=== PATIENT | female | born 1975 | race Two or more races ===

== ENCOUNTER 2019-05-23 21:12 | Inpatient (IN) | payer MEDICAID ==
[~2019-05-23] VITALS: Ht 154.9 cm; Wt 64.1 kg
[2019-05-23] VITALS (11 sets, daily range): BP systolic 92–136; BP diastolic 49–87; BMI 29.6
--- NOTE | 2019-05-23 21:50 | NUR ---
Patient arrived in unit. Patient to the ICU monitors. Patient speaks very little Azeri. medical billing supervisor nurse notified for translation phone. Patient normal sinus rhythm on monitor. Right subclavian central line noted. Dressing clean dry intact. Right wrist PIV noted clean dry and intact dressing. Midline abdominal dressing clean dry intact. Dressing removed incision well approximated. Midline abdominal drain LUBA drain x1 noted. Bloody drainage noted. Dr. Tran at the bedside at the patient's bedside. Dr. Tran did dressing change. See orders. Patient patient on levophed. See IV flowsheet. Will titrate Levophed per blood pressure and orders. Call light in reach. We will continue plan of care
[2019-05-23 22:17] LABS: APTT 30.7 SECONDS (22.8-39.4); INR 1.29 (0.85-1.17)
[2019-05-23 22:18] LABS: HEMATOCRIT 32.7 % (36.0-48.0); HEMOGLOBIN 10.7 g/dL (12-16); MCH 28.5 pg (26.0-34.0); MCHC 32.7 g/dL (31.0-37.0); MEAN PLATELET VOLUME 11.4 fL (7.4-10.4); PLATELET COUNT 98 10x3/uL (130-400); RBC 3.76 10x6/uL (4.00-5.40); RDW 15.9 % (11.5-14.5); WBC 29.8 10x3/uL (4.8-10.8)
[2019-05-23 22:18] LABS: D-DIMER-QUANTITATIVE 1.55 ug/mLFEU (0.20-0.54)
--- NOTE | 2019-05-23 22:30 | NUR ---
DR. CONNORS AT THE PTS BEDSIDE. WILL CONT POC.
[2019-05-23 22:36] LABS: ALBUMIN 1.8 g/dL (3.4-5.0); ALKALINE PHOSPHATASE 52 U/L (30-120); ALT (SGPT) 57 U/L (10-68); BILIRUBIN - TOTAL 1.19 mg/dL (0.2-1.3); CALC OSMOLALITY 282 mosm/kg (275-300); CARBON DIOXIDE 19.3 mmol/L (21.0-32.0); CHLORIDE - SERUM 107 mmol/L (98-107); CKMB 4.9 U/L (0.0-3.6); CREATINE KINASE 200 UL (21-215); GLUCOSE 207 mg/dL (74-106); POTASSIUM - SERUM 3.7 mmol/L (3.5-5.1); PROTEIN - SERUM 3.9 g/dL (6.4-8.2); SODIUM 139 mmol/L (136-145); UREA NITROGEN 10 mg/dL (7-18); eGFR NON AFRICAN AMERICAN 63 mL/min (90-120)
[2019-05-23 22:38] LABS: CALCIUM 5.9 mg/dL (8.5-10.1); TROPONIN-I 0.872 ng/mL (0.000-0.060)
[2019-05-23 22:53] LABS: EOSINOPHILS 3 % (0-7); LYMPHOCYTES 4 % (15-50); NEUTROPHILS 78 % (40-80); PLATELET ESTIMATE DECREASED
--- NOTE | 2019-05-23 23:16 | NUR ---
BLOOD CONSENT SIGNED BY THE PATIENT. (USED TRANSLATION PHONE. UNDERSTANDS COMPLETELY.)
--- NOTE | 2019-05-23 23:17 | NUR ---
PT LEFT AND CAME BACK FROM CTA. VSS. CONT TO TITRATE LEVOPHED. A TOTAL OF 120ML OF BLOODY DRAIANG EMPTIED FROM LUBA DRAIN. WILL CONT POC.
[2019-05-24] VITALS (90 sets, daily range): BP systolic 75–144; BP diastolic 45–85; BMI 29.5
[2019-05-24 03:59] LABS: BASOPHILS 0.1 % (0-2); EOSINOPHILS 0 % (0-7); HEMATOCRIT 30.5 % (36.0-48.0); HEMOGLOBIN 10.4 g/dL (12-16); IMMATURE GRANULOCYTES 0.4 % (0-5); LYMPHOCYTES 7.4 % (15-50); MCH 28.8 pg (26.0-34.0); MCHC 34.1 g/dL (31.0-37.0); MCV 84.5 fL (80.0-100.0); MONOCYTES 10.4 % (2-11); NEUTROPHILS 81.7 % (40-80); PLATELET COUNT 103 10x3/uL (130-400); RBC 3.61 10x6/uL (4.00-5.40); RDW 16.3 % (11.5-14.5)
[2019-05-24 04:19] LABS: ALBUMIN 1.9 g/dL (3.4-5.0); ALKALINE PHOSPHATASE 56 U/L (30-120); ALT (SGPT) 51 U/L (10-68); BILIRUBIN - TOTAL 0.91 mg/dL (0.2-1.3); CALC OSMOLALITY 267 mosm/kg (275-300); CARBON DIOXIDE 21.7 mmol/L (21.0-32.0); CHLORIDE - SERUM 106 mmol/L (98-107); CREATINE KINASE 211 UL (21-215); CREATININE - SERUM 0.7 mg/dL (0.6-1.3); GLUCOSE 135 mg/dL (74-106); MAGNESIUM - SERUM 1.2 mg/dL (1.8-2.4); PHOSPHOROUS 2.6 mg/dL (2.5-4.9); POTASSIUM - SERUM 3.6 mmol/L (3.5-5.1); PROTEIN - SERUM 4.1 g/dL (6.4-8.2); SODIUM 134 mmol/L (136-145); TROPONIN-I 0.487 ng/mL (0.000-0.060); UREA NITROGEN 7 mg/dL (7-18); eGFR NON AFRICAN AMERICAN > 90 mL/min (90-120)
[2019-05-24 04:20] LABS: CALCIUM 6.4 mg/dL (8.5-10.1)
--- NOTE | 2019-05-24 04:32 | NUR ---
LEVOPHED AT 8MCG/MIN. PT HAD A DROP IN HER BLOOD PRESSURE. CVP HOOKED TO ICU MONTITOR. 5-6 CVP. TITRATED LEVOPHED TO 25 MCG/MIN. DR DIANE NOTIFIED FOR CHANGE OF CONDITION. DR DIANE MADE AWARE OF CVL IN R ARTIUM AND RECOMENDS TO BE RETRACTED. DR DIANE MADE NOTIFIED OF AM LABS. GIVE 500ML BOLUS, GIVE 2 G IV MAG, AFTER NS BOLUS GIVEN, RECHECK CBC.
[2019-05-24 05:19] LABS: BASOPHILS 0.1 % (0-2); EOSINOPHILS 0 % (0-7); HEMOGLOBIN 9.8 g/dL (12-16); IMMATURE GRANULOCYTES 0.6 % (0-5); LYMPHOCYTES 10.7 % (15-50); MCH 28.7 pg (26.0-34.0); MCHC 33.8 g/dL (31.0-37.0); MCV 84.8 fL (80.0-100.0); MEAN PLATELET VOLUME 10.5 fL (7.4-10.4); MONOCYTES 12.5 % (2-11); NEUTROPHILS 76.1 % (40-80); PLATELET COUNT 104 10x3/uL (130-400); RBC 3.42 10x6/uL (4.00-5.40); RDW 16.5 % (11.5-14.5); WBC 18.7 10x3/uL (4.8-10.8)
--- NOTE | 2019-05-24 07:00 | NUR ---
REC'D REPORT AND RESUMED CARE, AAO VSS, O2 VIA NC AT 2L, SAT 98%, OTHER VSS, LEVAPHED IN USE AT 25MCG, RIGHT SC CVL IN PLACE DRESSING INTACT, MIDLINE ABDOMINAL INCISION WITH GAUZE DRESSING CDI, LLA WITH LUBA DRAIN, BLOODY DRAINAGE NOTED TO BULB, FORBES TO GRAVITY WITH CLEAR YELLOW DRAINAGE, SCD'S AND TEDS B/L, DENIES PAIN, ASSESSMENT COMPLETED PER FLOWSHEET, CALL LIGHT IN REACH, IRAQI SOLOMON LANGUAGE BUT UNDERSTANDS KITTITIAN, CUFF PRESSER PHONE AT BEDSIDE, NO NEEDS AT THIS TIME,
--- NOTE | 2019-05-24 09:00 | NUR ---
MORNING MEDS GIVEN PER APR FLOWSHEET
[2019-05-24 10:36] LABS: HEMATOCRIT 27.5 % (36.0-48.0); HEMOGLOBIN 9.2 g/dL (12-16)
[2019-05-24 10:39] LABS: APTT 28.7 SECONDS (22.8-39.4); INR 1.3 (0.85-1.17); PROTIME 16.1 SECONDS (11.6-15.0)
[2019-05-24 10:40] LABS: D-DIMER-QUANTITATIVE 0.84 ug/mLFEU (0.20-0.54)
--- NOTE | 2019-05-24 10:55 | NUR ---
DR DIANE AT BEDSIDE, UPDATED PATIENT STATUS TO FAMILY VIA PHONE, CVL LINE PULLED BACK 4 CM, PER RADIOLOGY REPORT, PROCEDURE TOLERATED WITHOUT DIFFICULTY, NO OTHER ACUTE CHANGE FROM PREVIOUS ASSESSMENT Moose GONSALEZ, CARDIOLOGY REGISTERED NURSING PROFESSOR AT BEDSIDE FOR EVAL, AWAITING ECHO REPORT TO BE COMPLETED, NO NEW ORDERS AT THIS TIME
--- NOTE | 2019-05-24 13:00 | NUR ---
CALLED TO ROOM, PAIN 5/10 IN ABDOMEN, DILAUDID 1MG IVP GIVEN PER MAR ORDER
--- NOTE | 2019-05-24 15:00 | NUR ---
CALLED TO ROOM, C/O OF THROAT BEING SORE, PC TO FELIZ RAMIREZ TO ORDER CHLORASEPTIC SPRAY, NO OTHER ACUTE CHANGE FROM PREVIOUS ASSESSMENT
[2019-05-24 15:40] LABS: HEMATOCRIT 25.6 % (36.0-48.0); HEMOGLOBIN 8.6 g/dL (12-16)
--- NOTE | 2019-05-24 16:25 | NUR ---
BLOOD CULTURES DRAWN, CVL/PERIPHERAL, VSS, ANCEF 1 GM INITIATED, PC TO DR DIANE RE: BLOOD PRODUCTS, HE STATED TO GIVE 2, AND WE CAN RECHECK, H/H AND TO ORDER COAGS FOR AM, STREP A FOR SWOLLEN THROAT,
--- NOTE | 2019-05-24 17:27 | NUR ---
CALLED TO ROOM, C/O HAVING TROUBLE BREATHING, PC TO SAMIR AHMADI, CT OF NECK, SOFT TISSUE ORDERED, ICE PACK APPLIED
[2019-05-24 23:56] LABS: HEMATOCRIT 34.4 % (36.0-48.0)
[2019-05-25] VITALS (84 sets, daily range): BP systolic 86–154; BP diastolic 41–637; Ht 154.9 cm; Wt 64.1 kg
[2019-05-25 06:13] LABS: ALBUMIN 2.2 g/dL (3.4-5.0); ALKALINE PHOSPHATASE 77 U/L (30-120); BILIRUBIN - TOTAL 0.82 mg/dL (0.2-1.3); CALCIUM 7.4 mg/dL (8.5-10.1); CARBON DIOXIDE 24.1 mmol/L (21.0-32.0); CHLORIDE - SERUM 106 mmol/L (98-107); SODIUM 141 mmol/L (136-145)
[2019-05-25 06:25] LABS: HEMATOCRIT 33.9 % (36.0-48.0); MCH 29.4 pg (26.0-34.0); MCHC 35.4 g/dL (31.0-37.0); MCV 83.1 fL (80.0-100.0); PLATELET COUNT 102 10x3/uL (130-400); RBC 4.08 10x6/uL (4.00-5.40); RDW 15.7 % (11.5-14.5); WBC 22.3 10x3/uL (4.8-10.8)
[2019-05-25 06:36] LABS: ALT (SGPT) 35 U/L (10-68); CALC OSMOLALITY 282 mosm/kg (275-300); CREATININE - SERUM 0.5 mg/dL (0.6-1.3); GLUCOSE 189 mg/dL (74-106); MAGNESIUM - SERUM 1.7 mg/dL (1.8-2.4); PROTEIN - SERUM 5.3 g/dL (6.4-8.2); UREA NITROGEN 5 mg/dL (7-18); eGFR NON AFRICAN AMERICAN > 90 mL/min (90-120)
[2019-05-25 06:40] LABS: PHOSPHOROUS 1.5 mg/dL (2.5-4.9); POTASSIUM - SERUM 2.9 mmol/L (3.5-5.1)
--- NOTE | 2019-05-25 07:00 | NUR ---
REC'D RPORT AND RESUMED CARE, AAO, VSS, DENIES PAIN, NO SIGNS OF DISTRESS, O2 VIA 2L NC, SAT 100%, RIGHT IJ WITH LEVAPHED INFUSING AT 5MCG, NS AT 10 CC/HR, ASSESSMENT COMPLETED PER FLOWSHEET, CALL LIGHT IN REACH, NO NEEDS AT THIS TIME
--- NOTE | 2019-05-25 09:00 | NUR ---
MORNING MEDS INITITATED PER MAR FLOWSHEET
--- NOTE | 2019-05-25 09:30 | NUR ---
AMBULATED 60 FEET WITH STAND BY ASSIST FROM PHYSICAL THERAPY
[2019-05-25 09:46] LABS: APTT 25.4 SECONDS (22.8-39.4); INR 1.1 (0.85-1.17); PROTIME 14.1 SECONDS (11.6-15.0)
[2019-05-25 09:47] LABS: D-DIMER-QUANTITATIVE 0.97 ug/mLFEU (0.20-0.54)
[2019-05-25 09:54] LABS: HEMATOCRIT 33.3 % (36.0-48.0); HEMOGLOBIN 11.3 g/dL (12-16)
--- NOTE | 2019-05-25 10:00 | NUR ---
DR DIANE HERE FOR EVAL, NEW ORDERS GIVEN, DIET UPGRADED TO CLEAR LIQUIDS, HOT TEA, APPLE JUICE AND JELLO TO BEDSIDE
--- NOTE | 2019-05-25 11:00 | NUR ---
UP IN CHAIR WITH NO SIGNS OF DISTRESS,VSS, NO ACUTE CHANGE FROM PREVIOUS ASSESSMENT
[2019-05-25 11:59] LABS: COMPLEMENT C4 15.7 mg/dL (17.4-52.2)
[2019-05-25 13:57] LABS: ERYTHROCYTE SEDIMENTATION RATE 7 mm/hr (0-20)
--- NOTE | 2019-05-25 14:30 | NUR ---
AMGULATED 100 FEET WITH VI ASSIST FROM PHYSICAL THERAPY, TOLERATED WITHOUT DIFFICULTY
--- NOTE | 2019-05-25 15:00 | NUR ---
CONTINUES TO SIT UP IN CHAIR, NO SIGNS OF DISTRESS, VSS, CALL LIGHT IN REACH NO NEEDS AT THIS TIME
[2019-05-25 15:03] LABS: LYMPHOCYTES 2 % (15-50); MONOCYTES 5 % (2-11); NEUTROPHILS 90 % (40-80); PLATELET ESTIMATE DECREASED
[2019-05-25 15:32] LABS: HEMATOCRIT 30.2 % (36.0-48.0); HEMOGLOBIN 10.2 g/dL (12-16)
--- NOTE | 2019-05-25 16:00 | NUR ---
DR PAYAN AT BEDSIDE, STATUS UPDATE WITH PATIENT, BTB WITH ASSIST, LUBA DRAIN AND FORBES DC'D WITHOUT DIFFICULTY, I AND O'S COMPLETED
--- NOTE | 2019-05-25 17:43 | NUR ---
OOB TO BEDSIDE COMMODE, 250 CC URINE TO KELLY, BTB WITH STAND BY ASSIST
--- NOTE | 2019-05-25 19:15 | NUR ---
ASSESSMENT COMPLETED PER FLOWSHEETS. PT A/O X4, DENIES ANY DISCOMFORT AT THIS TIME. ST ON CM. CONT LEVOPHED TO KEEP SBP >90, PER ORDER. CALL LIGHT IN REACH. CONT TO MONITOR.
[2019-05-25 22:57] LABS: HEMATOCRIT 28.5 % (36.0-48.0); HEMOGLOBIN 9.6 g/dL (12-16)
--- NOTE | 2019-05-25 23:00 | NUR ---
REASSESSMENT COMPLETED PER FLOWSHEETS. NO ACUTE CHANGES NOTED IN PT'S STATUS. TITRATE LEVOPHED TO KEEP SBP>90. SR ON CM. CPOC.
[2019-05-26] VITALS (72 sets, daily range): BP systolic 71–143; BP diastolic 45–83
--- NOTE | 2019-05-26 03:00 | NUR ---
REASSESSMENT COMPLETED. SEE FLOWSHEETS FOR ALL FINDINGS. PT RESTING QUIETLY WITHOUT ANY SIGNS OF DISTRESS. VSS. CPOC.
[2019-05-26 05:53] LABS: BASOPHILS 0 % (0-2); EOSINOPHILS 0 % (0-7); HEMATOCRIT 27.4 % (36.0-48.0); HEMOGLOBIN 9.3 g/dL (12-16); IMMATURE GRANULOCYTES 0.5 % (0-5); LYMPHOCYTES 4.1 % (15-50); MCHC 33.9 g/dL (31.0-37.0); MEAN PLATELET VOLUME 9.5 fL (7.4-10.4); MONOCYTES 5.6 % (2-11); NEUTROPHILS 89.8 % (40-80); WBC 19.4 10x3/uL (4.8-10.8)
[2019-05-26 06:03] LABS: MCV 85.4 fL (80.0-100.0); PLATELET COUNT 161 10x3/uL (130-400); RBC 3.21 10x6/uL (4.00-5.40)
[2019-05-26 06:10] LABS: ALBUMIN 2.1 g/dL (3.4-5.0); ALKALINE PHOSPHATASE 60 U/L (30-120); ALT (SGPT) 23 U/L (10-68); BILIRUBIN - TOTAL 0.68 mg/dL (0.2-1.3); CALC OSMOLALITY 288 mosm/kg (275-300); CALCIUM 7.4 mg/dL (8.5-10.1); CARBON DIOXIDE 30.2 mmol/L (21.0-32.0); CHLORIDE - SERUM 106 mmol/L (98-107); CREATININE - SERUM 0.5 mg/dL (0.6-1.3); GLUCOSE 152 mg/dL (74-106); MAGNESIUM - SERUM 1.9 mg/dL (1.8-2.4); PHOSPHOROUS 1.7 mg/dL (2.5-4.9); SODIUM 144 mmol/L (136-145); UREA NITROGEN 9 mg/dL (7-18); eGFR NON AFRICAN AMERICAN > 90 mL/min (90-120)
[2019-05-26 06:11] LABS: POTASSIUM - SERUM 2.6 mmol/L (3.5-5.1)
--- NOTE | 2019-05-26 08:36 | NUR ---
DR MANN HERE FOR EVAL, NO NEW ORDERS AT THIS TIME
[2019-05-26 11:08] LABS: ANA REFLEX - DIRECT Negative (Negative)
[2019-05-26 11:08] LABS: SPE - A/G RATIO 1.5 (0.7-1.7); SPE - ALBUMIN 2.2 g/dL (2.9-4.4); SPE - ALPHA-1 GLOBULIN 0.2 g/dL (0.0-0.4); SPE - ALPHA-2 GLOBULIN 0.4 g/dL (0.4-1.0); SPE - BETA GLOBULIN 0.5 g/dL (0.7-1.3); SPE - GAMMA GLOBULIN 0.5 g/dL (0.4-1.8); SPE - M-SPIKE Not Observed g/dL (Not Observed); SPE - TOTAL PROTEIN 3.7 g/dL (6.0-8.5)
--- NOTE | 2019-05-26 12:10 | NUR ---
PER DATA MODELING ARCHITECT WILL NEED TO MAKE PATIENT NPO AFTER MIDNIGHT FOR ABDOMINAL US ON WEDNESDAY MORNING
--- NOTE | 2019-05-26 12:29 | NUR ---
Nutrition Follow-up: Diet advanced to regular this AM. Noted pt to be NPO p MN for abd US tomorrow. Diet: Regular PO intake: 50-100% yesterday (clears) Wt: 156.5# (05/23) No BMs recorded Labs noted: K+ 2.6, Glu 152, Ca 7.4, PO4 1.7, Alb 2.1 Meds noted: KDur, MagOx, Solumedrol, Protonix, Levophed -Encourage PO intake and honor food preferences. -Monitor wt. -RD following.
[2019-05-26 12:35] LABS: HEMATOCRIT 33.4 % (36.0-48.0); HEMOGLOBIN 11.2 g/dL (12-16)
[2019-05-26 12:58] LABS: T4 THYROXIN - FREE 1.06 ng/dL (0.76-1.46); THYROID STIMULATING HORMONE 0.37 uIU/mL (0.36-3.74)
[2019-05-26 15:57] LABS: HEMATOCRIT 27.7 % (36.0-48.0); HEMOGLOBIN 9.2 g/dL (12-16)
--- NOTE | 2019-05-26 21:20 | NUR ---
ATTEMPTED TO SET PT UP FOR A BATH, REFUSED AT THIS TIME "SHE IS TOO TIRED." REQUESTED SHE LET ME KNOW IF SHE CHANGED HER MIND, VERBALIZED UNDERSTANDING.
[2019-05-27] VITALS (23 sets, daily range): BP systolic 95–131; BP diastolic 41–96
[2019-05-27 00:19] LABS: HEMATOCRIT 26.5 % (36.0-48.0); HEMOGLOBIN 8.8 g/dL (12-16)
--- NOTE | 2019-05-27 02:26 | NUR ---
PT C/O HEADACHE 8/10 ON PAIN SCALE, PRN NORCO 5 ADMINISTERED PER MD ORDER/PT REQUEST.
[2019-05-27 04:11] LABS: APTT 21.3 SECONDS (22.8-39.4)
[2019-05-27 04:12] LABS: INR 1.09 (0.85-1.17); PROTIME 14.1 SECONDS (11.6-15.0)
[2019-05-27 04:14] LABS: ALBUMIN 2.1 g/dL (3.4-5.0); ALKALINE PHOSPHATASE 56 U/L (30-120); ALT (SGPT) 21 U/L (10-68); BILIRUBIN - TOTAL 0.51 mg/dL (0.2-1.3); CALC OSMOLALITY 284 mosm/kg (275-300); CARBON DIOXIDE 28.3 mmol/L (21.0-32.0); CHLORIDE - SERUM 109 mmol/L (98-107); CREATININE - SERUM 0.4 mg/dL (0.6-1.3); GLUCOSE 159 mg/dL (74-106); PHOSPHOROUS 1.8 mg/dL (2.5-4.9); PROTEIN - SERUM 4.8 g/dL (6.4-8.2); SODIUM 142 mmol/L (136-145); UREA NITROGEN 10 mg/dL (7-18); eGFR NON AFRICAN AMERICAN > 90 mL/min (90-120)
[2019-05-27 04:20] LABS: CALCIUM 6.8 mg/dL (8.5-10.1); POTASSIUM - SERUM 3.8 mmol/L (3.5-5.1)
--- NOTE | 2019-05-27 04:32 | NUR ---
CRITICAL CALCIUM OF 6.8 NOTED ON AM MD GILBERT NOT CALLED DUE TO CORRECTED CALCIUM LEVEL 8.32 MG/DL
--- NOTE | 2019-05-27 05:51 | NUR ---
PT RESTING IN BED WITH EYES CLOSED, VSS, CONT TO MONITOR.
[2019-05-27 08:50] LABS: HEMATOCRIT 26.3 % (36.0-48.0); HEMOGLOBIN 8.5 g/dL (12-16); MCH 28.9 pg (26.0-34.0); MCHC 32.3 g/dL (31.0-37.0); MCV 89.5 fL (80.0-100.0); MEAN PLATELET VOLUME 10.4 fL (7.4-10.4); PLATELET COUNT 179 10x3/uL (130-400); RBC 2.94 10x6/uL (4.00-5.40); RDW 16.7 % (11.5-14.5); WBC 14.1 10x3/uL (4.8-10.8)
--- NOTE | 2019-05-27 08:50 | NUR ---
UP IN CHAIR BESIDE BED AT THIS TIME. VSS. NO ACUTE DISTRESS NOTED. CALL LIGHT AND PERSONAL ITEMS IN REACH. WILL CONTINUE PLAN OF CARE.
[2019-05-27 09:19] LABS: HYPOCHROMASIA 3+; LYMPHOCYTES 8 % (15-50); MONOCYTES 3 % (2-11); NEUTROPHILS 89 % (40-80); PLATELET ESTIMATE NORMAL; ROULEAUX 2+
--- NOTE | 2019-05-27 10:04 | NUR ---
UP IN CHAIR BESIDE BED AT THIS TIME EATING BREAKFAST AT THIS TIME. VSS. NO ACUTE DISTRESS NOTED. WILL CONTINUE PLAN OF CARE.
--- NOTE | 2019-05-27 11:08 | NUR ---
PER DR DIANE, OBTAIN Q12H H&H ALONG WITH A STAT NOW.
--- NOTE | 2019-05-27 11:12 | NUR ---
PT C/O A HEADACHE, SLIGHT INDIGESTION, AND CONSTIPATION. DR DIANE HERE TO SEE PT, NOTIFIED OF THIS.
[2019-05-27 11:22] LABS: HEMATOCRIT 28.8 % (36.0-48.0); HEMOGLOBIN 9.3 g/dL (12-16)
--- NOTE | 2019-05-27 12:30 | NUR ---
PT UP IN CHAIR AT THIS TIME. DENIES ANY NEEDS. VSS. NO ACUTE DISTRESS NOTED. WILL CONTINUE PLAN OF CARE.
--- NOTE | 2019-05-27 14:02 | NUR ---
NO ACUTE DISTRESS NOTED. NO CHANGE. VSS. PT INDEPENDENT IN CHAIR. CALL LIGHT AND PERSONAL ITEMS IN REACH. WILL CONTINUE PLAN OF CARE.
--- NOTE | 2019-05-27 16:17 | NUR ---
PT RESTING IN BED AT THIS TIME. VSS. NO ACUTE DISTRESS NOTED. PT DENIES ANY CURRENT NEEDS. CALL LIGHT AND PERSONAL ITEMS IN REACH. WILL CONTINUE PLAN OF CARE.
--- NOTE | 2019-05-27 16:19 | NUR ---
G BATH OFFERED TO PT, SHE REFUSED STATING SHE DID NOT WANT A BATH RIGHT NOW.
--- NOTE | 2019-05-27 18:01 | NUR ---
CONTINENT BOWEL MOVEMENT NOTED AT THIS TIME. SOFT BROWN, LARGE. PT PROVIDED OWN ANIYA CARE. ALSO CONTINENT VOID NOTED. ALL VIA BEDSIDE TOILET. PT NOW IN BED AWAKE. DENIES ANY NEEDS. VSS. WILL CONTINUE PLAN OF CARE.
--- NOTE | 2019-05-27 21:40 | NUR ---
PT SET UP WITH BATH SUPPLIES UP IN CHAIR, ABLE TO BATHE SELF. COMPLETE LINEN CHANGE DONE, BED LOW, CALL LIGHT IN REACH, DENIES ANY OTHER NEEDS AT THIS TIME.
[2019-05-28] VITALS (17 sets, daily range): BP systolic 92–127; BP diastolic 56–77
--- NOTE | 2019-05-28 00:53 | NUR ---
PT C/O HEADACHE 3 ON VPS, PRN PO TYLENOL 325MG ADMINISTERED PER MD ORDER/PT REQUEST.
--- NOTE | 2019-05-28 02:15 | NUR ---
PT UP TO BSC WITH MINIMAL TO NO ASSISTANCE, STEADY ON FEET. ANIYA WIPES PROVIDED, PT DENIES ANY OTHER NEEDS AT THIS TIME.
[2019-05-28 06:23] LABS: BASOPHILS 0.1 % (0-2); EOSINOPHILS 0 % (0-7); HEMATOCRIT 25.5 % (36.0-48.0); HEMOGLOBIN 8.3 g/dL (12-16); IMMATURE GRANULOCYTES 1.7 % (0-5); LYMPHOCYTES 20.1 % (15-50); MCH 28.8 pg (26.0-34.0); MCHC 32.5 g/dL (31.0-37.0); MCV 88.5 fL (80.0-100.0); MONOCYTES 10.1 % (2-11); PLATELET COUNT 169 10x3/uL (130-400); RBC 2.88 10x6/uL (4.00-5.40); RDW 16.5 % (11.5-14.5); WBC 11.2 10x3/uL (4.8-10.8)
--- NOTE | 2019-05-28 06:23 | NUR ---
PT RESTING IN BED WITH EYES CLOSED, VSS, CONT POC.
[2019-05-28 06:38] LABS: ALBUMIN 2.2 g/dL (3.4-5.0); ALKALINE PHOSPHATASE 50 U/L (30-120); ALT (SGPT) 21 U/L (10-68); BILIRUBIN - TOTAL 0.52 mg/dL (0.2-1.3); CALCIUM 7.3 mg/dL (8.5-10.1); CARBON DIOXIDE 26.3 mmol/L (21.0-32.0); CHLORIDE - SERUM 108 mmol/L (98-107); CHOL - HDL RATIO 5.1 ratio (2.3-4.1); CHOLESTEROL, TOTAL 112 mg/dL (0-200); CREATININE - SERUM 0.4 mg/dL (0.6-1.3); HDL CHOLESTEROL 22 mg/dL (32-96); LDL CHOLESTEROL 64 mg/dL (0-100); LDL-HDL RATIO 2.9 ratio (1.5-3.5); POTASSIUM - SERUM 3.7 mmol/L (3.5-5.1); PROTEIN - SERUM 4.6 g/dL (6.4-8.2); SODIUM 140 mmol/L (136-145); TRIGLYCERIDE 132 mg/dL (30-200); UREA NITROGEN 11 mg/dL (7-18); eGFR NON AFRICAN AMERICAN > 90 mL/min (90-120)
[2019-05-28 06:40] LABS: CALC OSMOLALITY 277 mosm/kg (275-300); GLUCOSE 94 mg/dL (74-106); PHOSPHOROUS 2.4 mg/dL (2.5-4.9)
--- NOTE | 2019-05-28 07:00 | NUR ---
RECEIVED BEDSIDE REPORT ON PATIENT AND ASSUMED CARE. PATIENT RESTING QUIETLY WITH EYES CLOSED, EASILY AROUSED BY VOICE. ALERT AND ORIENTED X 4, VSS. CM - RATE OF 82, NSR WITH NO ECTOPY NOTED, RR - 12, BBS CLEAR AND EQUAL, SPO2 99% ON RA. HEAD TO TOE ASSESSMENT COMPLETED. CVL RIGHT IJ INFUSING NS AT 75 ML/HR.
[2019-05-28 07:01] LABS: APTT 22.6 SECONDS (22.8-39.4); INR 1.1 (0.85-1.17); PROTIME 14.2 SECONDS (11.6-15.0)
--- NOTE | 2019-05-28 08:32 | NUR ---
PATIENT UP TO BEDSIDE CHAIR, MORNING MEDS PER MAR. GIVEN BREAKFAST TRAY, NO NEEDS AT THIS TIME. VSS.
--- NOTE | 2019-05-28 09:19 | NUR ---
PATIENT BACK IN BED, RESTING QUIETLY. VSS.
--- NOTE | 2019-05-28 11:08 | NUR ---
REASSESSMENT COMPLETED. VSS. NO NEEDS AT THIS TIME.
[2019-05-28 11:49] LABS: HEMATOCRIT 27.8 % (36.0-48.0); HEMOGLOBIN 8.9 g/dL (12-16)
--- NOTE | 2019-05-28 12:20 | NUR ---
DR. CORDOBA AT ROOM UPDATED AND EXAMINES PATIENT.
--- NOTE | 2019-05-28 15:29 | NUR ---
REPORT CALLED TO SIDDHARTH ON MED/SURG PATIENT TRANSFERED VIA WHEELCHAIR WITH BELONGINGS TO ROOM 2224.
--- NOTE | 2019-05-28 16:27 | NUR ---
RECEIVD PT TO ROOM, PT IS ALERT AND ORIENTED AND ABLE TO COMMUNICATE WITH SIMPLE INSTRUCTIONS, NO S/SX OF DISTRESS, IV TO RT IJ SL, CL IN REACH, NO NEEDS VOICED, ASSUME PT CARE
--- NOTE | 2019-05-28 18:42 | NUR ---
I have reviewed this patient and I concur with the Shift Assessment completed by the Licensed Practical Nurse today this shift.
--- NOTE | 2019-05-28 19:00 | NUR ---
BEDSIDE REPORT RECEIVED AND CARE OF PT ASSUEMD. PT LYING IN SUPINE POSITION WITH EYES CLOSED AND EASY RESPIRATIONS. RIGHT IJ CENTRAL LINE SALINE LOCKED. WILL MONITOR FOR NEEDS.
--- NOTE | 2019-05-28 20:37 | NUR ---
HS MEDICATIONS GIVEN. GAVE LARGE CUP OF ICE WATER AND COLA. WILL CONTINUE TO MONITOR FOR NEEDS.
[2019-05-28 23:14] LABS: HEMATOCRIT 30.7 % (36.0-48.0); HEMOGLOBIN 10.1 g/dL (12-16)
--- NOTE | 2019-05-29 00:15 | NUR ---
NPO STATUS BEGAN AT MIDNIGHT FOR AM PROCEDURE.
[2019-05-29 01:01] VITALS: BP 113/66
[2019-05-29 04:00] VITALS: BP 89/56
--- NOTE | 2019-05-29 07:50 | NUR ---
PT LYUING IN BED, NO S/SX OF DISTRESS, PT IV IN RT IJ CDI, NS @100, PT BP STILL RUNNING LOW THIS MORNING, WILL CONTINUE TO MONITOR. NO NEEDS VOICED, CONTINUE WITH PLAN OF CARE
[2019-05-29 07:51] VITALS: BP 92/58
--- NOTE | 2019-05-29 11:01 | NUR ---
I have reviewed this patient and I concur with the Shift Assessment completed by the Licensed Practical Nurse today this shift.
[2019-05-29 12:30] VITALS: BP 96/44
--- NOTE | 2019-05-29 13:13 | NUR ---
PT SITTING UP IN BED NO S/SX OF DISTRESS, CL IN REACH. NO NEEDS VOICED, CONTINUE WITH PLAN OF CARE
[2019-05-29 17:03] VITALS: BP 95/52
--- NOTE | 2019-05-29 19:00 | NUR ---
BEDSIDE REPORT RECEIVED AND CARE OF PT ASSUMED. PT LYING IN LOW LEPE'S POSITION, ALERT AND ORIENTED. RIGHT IJ PATENT WITH NS INFUSING AT 100 ML/HR. WILL MONITOR FOR NEEDS.
--- NOTE | 2019-05-29 19:55 | NUR ---
HS MEDICATIONS GIVEN. GAVE ICE CREAM FOR HS SNACK.
[2019-05-29 20:00] VITALS: BP 101/51
[2019-05-30] VITALS: BP 96/52
[2019-05-30 04:00] VITALS: BP 96/52
[2019-05-30 05:28] LABS: CALC OSMOLALITY 273 mosm/kg (275-300); CALCIUM 7.5 mg/dL (8.5-10.1); CARBON DIOXIDE 26.8 mmol/L (21.0-32.0); CHLORIDE - SERUM 106 mmol/L (98-107); CREATININE - SERUM 0.4 mg/dL (0.6-1.3); GLUCOSE 85 mg/dL (74-106); SODIUM 138 mmol/L (136-145); UREA NITROGEN 9 mg/dL (7-18); eGFR NON AFRICAN AMERICAN > 90 mL/min (90-120)
[2019-05-30 06:08] LABS: POTASSIUM - SERUM 4.4 mmol/L (3.5-5.1)
[2019-05-30 06:43] LABS: BASOPHILS 0.1 % (0-2); EOSINOPHILS 1.7 % (0-7); HEMATOCRIT 32.7 % (36.0-48.0); HEMOGLOBIN 10.5 g/dL (12-16); IMMATURE GRANULOCYTES 3.5 % (0-5); LYMPHOCYTES 20.2 % (15-50); MCH 29.2 pg (26.0-34.0); MCHC 32.1 g/dL (31.0-37.0); MCV 90.8 fL (80.0-100.0); MEAN PLATELET VOLUME 10.1 fL (7.4-10.4); MONOCYTES 10.1 % (2-11); NEUTROPHILS 64.4 % (40-80); PLATELET COUNT 242 10x3/uL (130-400); RDW 16.6 % (11.5-14.5); WBC 10.9 10x3/uL (4.8-10.8)
[2019-05-30 08:18] VITALS: BP 99/52
[2019-05-30 08:27] VITALS: BP 99/52
[2019-05-30 12:04] VITALS: BP 97/53
--- NOTE | 2019-05-30 12:28 | MORECARE ---
CASE MANAGEMENT DISCHARGE SUMMARY PATIENT: JUSTICE VERNON UNIT: [id number] ADM DATE: 05/23/19 AGE: 43 : 71 SEX: F ROOM/BED: D.2224 AUTHOR: GUI NELSON PHYSICIAN: REFERRING PHYSICIAN: CHRISTIANO DE JESUS MD DATE OF SERVICE: 05/30/19 Discharge Plan Patient Name: JUSTICE VERNON [facility] [facility] 1975 Planned Disposition: Home or Self Care Anticipated Discharge Date: Discharge Date: Expected LOS: Initial Reviewer: [email or web address] Initial Review Date: 05/23/2019 Generated: 05/30/19 1:28 pm DCPIA - Discharge Planning Initial Assessment Updated by [email or web address]: Sera Lewis on 05/30/19 12:27 pm * Is the patient Alert and Oriented? Yes * How many steps to enter\exit or inside your home? * PCP NONE * Pharmacy [facility] * Preadmission Environment Home with Family * ADLs Independent * Equipment None * List name and contact numbers for known caregivers / representatives who currently or will assist patient after discharge: BERNARDA [phone] * Verbal permission to speak to the caregivers and representatives has been obtained from the patient. Yes * Community resources currently utilized None * Additional services required to return to the preadmission environment? No * Can the patient safely return to the preadmission environment? Yes * Has this patient been hospitalized within the prior 30 days at any hospital? No Patient Name: JUSTICE VERNON Page [phone] at 1228 All edits/amendments must be made on the electronic document DICTATION DATE: 05/30/19 1228 TIN POT OPERATOR: NEWTON 05/30/19 1228 RPT#: [id number] DC DATE: STATUS: ADM IN [facility] [address] [place] [address] END OF REPORT
--- NOTE | 2019-05-30 12:38 | MORECARE ---
CASE MANAGEMENT DISCHARGE SUMMARY PATIENT: JUSTICE VERNON UNIT: [id number] ADM DATE: 05/23/19 AGE: 43 : 71 SEX: F ROOM/BED: D.2224 AUTHOR: OMARDOC PHYSICIAN: REFERRING PHYSICIAN: JOSEPH DE JESUS MD DATE OF SERVICE: 05/30/19 Discharge Plan Patient Name: JUSTICE VERNON Facility: [facility]:[place] : 1975 Planned Disposition: Home or Self Care Anticipated Discharge Date: Discharge Date: Expected LOS: Initial Reviewer: [email or web address] Initial Review Date: 05/23/2019 Generated: 05/30/19 1:37 pm Comments DCP- Discharge Planning Updated by [email or web address]: Sera Lewis on 05/30/19 11:[address] Patient Name: JUSTICE VERNON Admission Status: Elective Accout number: [id number] Admission Date: 05-23-2019 : 1975 Admission Diagnosis:DISSEMINATED INTRAVASCULAR COAGULATION Attending: oJseph De Jesus Current LOS: 7 Anticipated DC Date: Planned Disposition: Home or Self Care Primary Insurance: MEDICAID [place] PENDING Discharge Planning Comments: CM met with patient & Aleida (oldest daughter on speaker phone) to complete initial dc planning assessment. CM educated patient on the CM role and verbal consent given by patient to complete assessment. Patient lives at home with her adult son's and youngest daughter. At discharge patient plans to return home and feels this is a safe discharge. CM discussed availability of home health, rehab services, and medical equipment. She is independent with her care. Aleida will be her laundry route driver home. Patient denied known discharge needs at this time. CM will continue to follow and will assist as needed with dc plans/needs. Farm Management Agent: Sera Lewis DCPIA - Discharge Planning Initial Assessment Updated by [email or web address]: Sera Lewis on 05/30/19 12:27 pm * Is the patient Alert and Oriented? Yes * How many steps to enter\exit or inside your home? * PCP NONE * Pharmacy [facility] * Preadmission Environment Home with Family * ADLs Independent * Equipment None * List name and contact numbers for known caregivers / representatives who currently or will assist patient after discharge: BERNARDA [phone] * Verbal permission to speak to the caregivers and representatives has been obtained from the patient. Yes * Community resources currently utilized None * Additional services required to return to the preadmission environment? No * Can the patient safely return to the preadmission environment? Yes * Has this patient been hospitalized within the prior 30 days at any hospital? No Last DP export: 05/30/19 11:28 a Patient Name: JUSTICE VERNON Page [phone] at 1238 All edits/amendments must be made on the electronic document DICTATION DATE: 05/30/19 1237 TRASHMAN: NEWTON 05/30/19 1237 RPT#: [id number] DC DATE: STATUS: ADM IN [facility] [address] [place] [address] END OF REPORT
[2019-05-30 16:48] VITALS: BP 100/56
--- NOTE | 2019-05-30 16:54 | NUR ---
RIGHT IJ REMOVED AFTER SUTURES CLIPPED. TIP INTACT. PRESSURE HELD X 5 MIN WITH NO BLEEDING NOTED. BIOPATCH AND OCCLUSIVE DRESSING IN PLACE. INSTRUCTED TO REMAIN FLAT X 15 MIN. CALL LIGHT IN REACH
--- NOTE | 2019-05-31 18:31 | MORECARE ---
CASE MANAGEMENT DISCHARGE SUMMARY PATIENT: JUSTICE VERNON UNIT: [id number] ADM DATE: 05/23/19 AGE: 43 : 71 SEX: F ROOM/BED: D.2224 AUTHOR: OMAR,DOC PHYSICIAN: REFERRING PHYSICIAN: JOSEPH DE JESUS MD DATE OF SERVICE: 05/31/19 Discharge Plan Patient Name: JUSTICE VERNON Facility: [facility]:[place] : 1975 Planned Disposition: Home or Self Care Anticipated Discharge Date: Discharge Date: 05/30/2019 Expected LOS: Initial Reviewer: [email or web address] Initial Review Date: 05/23/2019 Generated: 05/31/19 7:30 pm Comments DCP- Discharge Planning Updated by [email or web address]: Sera Lewis on 05/30/19 11:[address] Patient Name: JUSTICE VERNON Admission Status: Elective Accout number: [id number] Admission Date: 05-23-2019 : 1975 Admission Diagnosis:DISSEMINATED INTRAVASCULAR COAGULATION Attending: Joseph De Jesus Current LOS: 7 Anticipated DC Date: Planned Disposition: Home or Self Care Primary Insurance: MEDICAID [place] PENDING Discharge Planning Comments: CM met with patient & Aleida (oldest daughter on speaker phone) to complete initial dc planning assessment. CM educated patient on the CM role and verbal consent given by patient to complete assessment. Patient lives at home with her adult son's and youngest daughter. At discharge patient plans to return home and feels this is a safe discharge. CM discussed availability of home health, rehab services, and medical equipment. She is independent with her care. Aleida will be her driver engineer home. Patient denied known discharge needs at this time. CM will continue to follow and will assist as needed with dc plans/needs. Cigar Packer: Sera Lewis DCPIA - Discharge Planning Initial Assessment Updated by [email or web address]: Sera Lewis on 05/30/19 12:27 pm * Is the patient Alert and Oriented? Yes * How many steps to enter\exit or inside your home? * PCP NONE * Pharmacy [facility] * Preadmission Environment Home with Family * ADLs Independent * Equipment None * List name and contact numbers for known caregivers / representatives who currently or will assist patient after discharge: BERNARDA [phone] * Verbal permission to speak to the caregivers and representatives has been obtained from the patient. Yes * Community resources currently utilized None * Additional services required to return to the preadmission environment? No * Can the patient safely return to the preadmission environment? Yes * Has this patient been hospitalized within the prior 30 days at any hospital? No Last DP export: 05/30/19 11:38 a Patient Name: JUSTICE VERNON Page [phone] at 1831 All edits/amendments must be made on the electronic document DICTATION DATE: 05/31/191829 THERMAL MOLDER: NEWTON 05/31/191829 RPT#: [id number] ID DATE:05/30/19 STATUS: DIS IN [facility] [address] [place] [address] END OF REPORT
== END 2019-05-30 18:37 | disposition home or self-care (01) | DRG 813 ==
LOC: D.ICU 21:12 → D.MS 05-28 15:30
PROVIDERS: Family Medicine; Internal Medicine Hematology & Oncology; Internal Medicine Nephrology; ADMIT Obstetrics & Gynecology; ATTEND Obstetrics & Gynecology
DX: D65 Disseminated intravascular coagulation [defibrination syndrome] (principal); I21.A1 Myocardial infarction type 2; R57.8 Other shock; D62 Acute posthemorrhagic anemia; I95.9 Hypotension, unspecified; E83.51 Hypocalcemia; T78.3XXA Angioneurotic edema, initial encounter; R51 Headache; R12 Heartburn